=== PATIENT | female | born 1990 | race Caucasian/White ===

== ENCOUNTER → 2017-03-11 | Outpatient (CLI) | payer OTHER ==
[~2017-03-11] MED LIST: PRENTAB55 PO
== END ==
LOC: M SMT 10:43
PROVIDERS: ATTEND Advanced Practice Midwife
DX: O20.0 Threatened abortion (principal); Z3A.00 Weeks of gestation of pregnancy not specified

== ENCOUNTER → 2017-03-13 | Outpatient (CLI) | payer OTHER | LOC: M SMT 10:36 | PROVIDERS: ATTEND Advanced Practice Midwife | DX: O20.0 Threatened abortion (principal); Z3A.00 Weeks of gestation of pregnancy not specified ==

== ENCOUNTER → 2017-03-16 | Outpatient (CLI) | payer OTHER ==
[2017-03-16 20:12] LABS: BASO % 0.3 % (0.0-1.0); EOS # 0.1 K/mm3 (0.0-0.50); EOS % 1.1 % (0.0-3.0); LARGE UNSTAINED CELL # 0.1 K/mm3 (0.0-0.4); LARGE UNSTAINED CELL % 1.2 % (0.0-4.0); LYMPH # 1.7 K/mm3 (1.5-6.5); MEAN CORPUSCULAR HEMOGLOBIN 33.2 pg (27.0-33.0); MEAN CORPUSCULAR VOLUME 97.6 fl (80.0-96.0); MONO # 0.4 K/mm3 (0.0-0.8); MONO % 4.7 % (0.0-5.0); NEUTROPHILS # 5.9 K/mm3 (1.8-7.7); NEUTROPHILS % 72.7 % (36.0-66.0); PLATELET COUNT, AUTOMATED 225 k/mm3 (150-450); RED CELL DISTRIBUTION WIDTH 11.6 % (11.5-14.5); WHITE BLOOD COUNT 8.1 K/mm3 (4.0-10.0)
[2017-03-18 11:31] LABS: HBsAg Prenatal NEGATIVE (NEGATIVE)
== END ==
LOC: M SMT 14:14
PROVIDERS: ATTEND Obstetrics & Gynecology
DX: Z34.81 Encounter for supervision of other normal pregnancy, first trimester (principal)

== ENCOUNTER → 2017-05-22 | Outpatient (CLI) | payer MEDICAID, OTHER | LOC: M SMT 15:18 | PROVIDERS: ATTEND Obstetrics & Gynecology | DX: Z31.438 Encounter for other genetic testing of female for procreative management (principal) ==

== ENCOUNTER → 2017-06-02 | Outpatient (CLI) | payer MEDICAID, OTHER ==
--- NOTE | 2017-06-03 06:28 | REP ---
Clinical: Anatomical evaluation. Comparison: None . Findings: Examination demonstrates a single live intrauterine in breech presentation. motion is identified by technologist. Placenta is noted posteriorly and grade zero with evidence for complete previa. Amniotic fluid volume is normal. Cervix measures 3.5 cm in length and appears closed. No evidence for nuchal cord. Gestational age by LMP 18 weeks 5 days with MT 10/29/2017 . Gestational age by current measurements 18 weeks 1 day with MT 11/02/2017 . FHR equals 153 beats per minute. BPD 4.0 cm 18 weeks 0 days HC 15.0 cm 18 weeks 0 days AC 12.6 cm 18 weeks 1 day FL 2.7 cm 18 weeks 3 days HL 2.6 cm 18 weeks 1 day HC/AC ratio 1.19 Estimated weight 230 grams ( 30th percentile). Anatomical assessment demonstrates normal structures including cranium, choroid plexus, cavum, cerebellum/posterior fossa, facial features, lungs, four-chamber heart/ventricular outflow tracts, diaphragm, stomach, cord insertion/three-vessel cord, kidneys/bladder, spine, and extremities. Impression: 1. Single live intrauterine in breech presentation demonstrating appropriate interval growth. 2. Posterior placenta with complete previa. 3. Anatomical assessment is complete and normal. Signed by Dino Beatty MD 06/03/2017 06:19 A
== END ==
LOC: M SMT 14:47
PROVIDERS: ATTEND Obstetrics & Gynecology
DX: Z34.82 Encounter for supervision of other normal pregnancy, second trimester (principal)

== ENCOUNTER 2017-06-24 11:17 | Outpatient (CLI) | payer OTHER ==
[~2017-06-24] VITALS: Ht 160 cm; Wt 57.0 kg
[2017-06-24] MEDS ORDERED: PRENTAB55 PO (11:41)
== END 2017-06-24 12:05 | disposition home or self-care (01) ==
LOC: M LDO 11:17
PROVIDERS: ATTEND Specialist
DX: O26.892 Other specified pregnancy related conditions, second trimester (principal); Z3A.21 21 weeks gestation of pregnancy

== ENCOUNTER → 2017-07-16 | Outpatient (CLI) | payer OTHER ==
--- NOTE | 2017-07-16 16:49 | REP ---
Obstetric sonography: History: Supervision of for anatomy. Complete previa. Follow-up. Findings: Scanning through the gravid uterus demonstrates a viable single intrauterine gestation in a breech lie. motion is observed and heart rate is recorded at 144 beats per minute. A low-lying posterior placenta is seen without evidence of previa or abruption grade zero. Closed cervical length is 3.9 cm visualized transabdominally as well as transvaginally. No extrauterine abnormalities observed. There has been appropriate interval growth. The inferior tip of the placenta is 0.4 cm from the closed internal cervical os. No anomalies seen. Following anatomic structures are identified and felt to be sonographically unremarkable: cranium, choroid plexus, cavum, cerebellum posterior fossa, face and profile, lungs, four-chamber heart with left and right ventricular outflow tract views, diaphragm, left-sided stomach, abdominal wall cord insertion, three-vessel umbilical cord, kidneys and bladder, spine, upper and lower extremities. Biometry chart: BPD 6.0 cm = 24 weeks 2 days Head circumference 22.4 cm = 24 weeks 3 days Abdominal circumference 19.4 cm = 24 weeks 1 day Femur length 4.3 cm = 23 weeks 6 days Humeral length 3.9 cm = 24 weeks 0 days Cerebellar diameter 2.8 cm = 24 weeks 5 days HC/AC ratio normal 1.15, cephalic index normal 0.73, estimated weight 659 grams 1 pound 7 ounces 20th percentile for 25 weeks 0 days. AMARIS normal 9.6 cm. SD ratio in the umbilical cord artery by Doppler normal 3.69. Impression: Viable single intrauterine gestation at 23 weeks 6 days by today's composite criteria. Expected gestational age estimate based on prior sonography is 25 weeks 0 days. MT by prior sonography October 29, 2017. Very low-lying posterior placenta is seen, 0.4 cm from the internal cervical os. This is essentially a marginal posterior placenta. Signed by Hiram Myers MD 07/16/2017 05:29 P
== END ==
LOC: M SMT 12:59
PROVIDERS: ATTEND Advanced Practice Midwife
DX: O44.02 Complete placenta previa NOS or without hemorrhage, second trimester (principal); Z3A.23 23 weeks gestation of pregnancy

== ENCOUNTER → 2017-08-07 | Outpatient (CLI) | payer OTHER ==
[2017-08-07 14:11] LABS: BASO % 0.3 % (0.0-1.0); EOS % 0.3 % (0.0-3.0); IMMATURE GRANULOCYTE % 0.7 % (0-0); LYMPH # 1.6 10^3/uL (1.5-6.5); MEAN CORPUSCULAR HEMOGLOBIN 33.4 pg (27.0-33.0); MEAN CORPUSCULAR HGB CONC 34.4 g/dl (32.0-36.5); MEAN CORPUSCULAR VOLUME 97.1 fl (80.0-96.0); MONO # 0.7 10^3/uL (0.0-0.8); MONO % 5.6 % (0.0-5.0); NEUTROPHILS # 9.5 10^3/uL (1.8-7.7); NEUTROPHILS % 80.1 % (36.0-66.0); PLATELET COUNT, AUTOMATED 238 10^3/uL (150-450); RED CELL DISTRIBUTION WIDTH 12.2 % (11.5-14.5); WHITE BLOOD COUNT 11.9 10^3/uL (4.0-10.0)
== END ==
LOC: M SMT 09:18
PROVIDERS: ATTEND Advanced Practice Midwife
DX: Z34.83 Encounter for supervision of other normal pregnancy, third trimester (principal)

== ENCOUNTER → 2017-09-09 | Outpatient (CLI) | payer OTHER | LOC: M SMT 14:00 | DX: O44.43 Low lying placenta NOS or without hemorrhage, third trimester (principal); Z3A.33 33 weeks gestation of pregnancy | CPT/HCPCS: 76816 ==

== ENCOUNTER 2017-09-25 14:40 | Outpatient (CLI) | payer OTHER | END 2017-09-25 16:48 | disposition home or self-care (01) | LOC: M LDO 14:40 | DX: O26.893 Other specified pregnancy related conditions, third trimester (principal); Z3A.35 35 weeks gestation of pregnancy; O99.333 Smoking (tobacco) complicating pregnancy, third trimester; R10.9 Unspecified abdominal pain; M54.5 Low back pain; F17.210 Nicotine dependence, cigarettes, uncomplicated ==

== ENCOUNTER → 2017-09-29 | Outpatient (REF) | payer OTHER | LOC: M LAB REF 10:12 | DX: Z34.83 Encounter for supervision of other normal pregnancy, third trimester (principal) ==

== ENCOUNTER → 2017-10-01 | Outpatient (CLI) | payer OTHER | LOC: M SMT 08:41 | DX: O44.43 Low lying placenta NOS or without hemorrhage, third trimester (principal); Z3A.00 Weeks of gestation of pregnancy not specified | CPT/HCPCS: 76817 ==

== ENCOUNTER 2017-10-02 20:25 | Outpatient (CLI) | payer OTHER | END 2017-10-02 22:25 | disposition home or self-care (01) | LOC: M LDO 20:25 | DX: O26.853 Spotting complicating pregnancy, third trimester (principal); O47.03 False labor before 37 completed weeks of gestation, third trimester; Z3A.36 36 weeks gestation of pregnancy ==

== ENCOUNTER 2017-10-05 15:55 | Inpatient (IN) | payer OTHER ==
[2017-10-05] MEDS: ePHEDrine INJ 50 MG/ML VIAL IV (05:41)
[2017-10-05 16:56] LABS: HEMATOCRIT 32.1 % (36.0-47.0); HEMOGLOBIN 11.3 g/dl (12.0-16.0); MEAN CORPUSCULAR HEMOGLOBIN 32.8 pg (27.0-33.0); MEAN CORPUSCULAR HGB CONC 35.2 g/dl (32.0-36.5); PLATELET COUNT, AUTOMATED 236 10^3/uL (150-450); RED BLOOD COUNT 3.45 10^6/uL (4.00-5.40); RED CELL DISTRIBUTION WIDTH 11.8 % (11.5-14.5); WHITE BLOOD COUNT 16.3 10^3/uL (4.0-10.0)
[2017-10-05] MEDS: BETAMETHASONE SOLUSPAN 6MG/ML INJ 5ML (J0702) IM (16:58)
[2017-10-05] MEDS: miSOPROStol 50 MCG 1/2 TAB (S0191) PO ×2 (16:58→21:36)
[2017-10-05 17:28] LABS: AMPHETAMINES URINE REFLEX NEGATIVE (NEGATIVE); BARBITURATES URINE REFLEX NEGATIVE (NEGATIVE); BENZODIAZEPINES URINE REFLEX NEGATIVE (NEGATIVE); CANNABINOIDS URINE REFLEX NEGATIVE (NEGATIVE); COCAINE METABOLITE URINE REFLE NEGATIVE (NEGATIVE); METHADONE URINE REFLEX NEGATIVE (NEGATIVE); OPIATES URINE REFLEX NEGATIVE (NEGATIVE); PHENCYCLIDINE URINE REFLEX NEGATIVE (NEGATIVE)
[2017-10-05] MEDS ORDERED: OXYTOCIN DRIP 30 UNITS in APPROPRIATE DILUENT 1 EA IV (22:00)
[2017-10-06] MEDS ORDERED: FENTANYL 2MCG/ML ROPIVACAINE 0.2% IN 0.9% NACL 200ML IVBAG As Ordered (02:15)
[2017-10-06] MEDS ORDERED: diphenhydrAMINE INJ 50MG/ML VIAL (J1200) IV (04:15)
[2017-10-06] MEDS ORDERED: REFRIGERATOR IV KEYS XX (04:15)
[2017-10-06] MEDS ORDERED: LACTATED RINGER'S 1000 ML IV (04:15)
[2017-10-06] MEDS ORDERED: NALOXONE INJ 0.4 MG/1 ML VIAL (J2310) IV (04:15)
[2017-10-06] MEDS ORDERED: EPIDURAL/PCA KEYS XX (04:15)
[2017-10-06] MEDS ORDERED: FENTANYL/ROPIVACAINE/NACL BAG 200 ML EPIDURAL (04:15)
[2017-10-06] MEDS ORDERED: EPIDURAL COMMENT XX (04:15)
[2017-10-06] MEDS ORDERED: ONDANSETRON 4MG/2ML VIAL (J2405) IV (04:15)
[2017-10-06] MEDS: BETAMETHASONE SOLUSPAN 6MG/ML INJ 5ML (J0702) IM (05:14)
[2017-10-06] MEDS: ePHEDrine INJ 50 MG/ML VIAL IV ×2 (05:35→07:33)
[2017-10-06] MEDS: LR 1,000 ML IV (07:55)
[2017-10-06] MEDS: OXYTOCIN DRIP 30 UNITS in APPROPRIATE DILUENT 1 EA IV (14:18)
[2017-10-06] MEDS ORDERED: MEASLES,MUMPS,RUBELLA VACCINE INJ (MMR-II) (90707) SC (14:30)
[2017-10-06] MEDS ORDERED: DOCUSATE SODIUM 100 MG CAP PO (14:30)
[2017-10-06] MEDS ORDERED: SLF 3 ML SYR IV (14:30)
[2017-10-06] MEDS ORDERED: ACETAMINOPHEN 500 MG TAB PO (14:30)
[2017-10-06] MEDS ORDERED: METHYLERGONOVINE MALEATE 0.2 MG TAB PO (14:30)
[2017-10-06] MEDS ORDERED: DIBUCAINE 1% OINTMENT 30GM TOP (14:30)
[2017-10-06] MEDS ORDERED: RHOGAM 300 MCG (1500 IU) INJ (J2790) IM (14:30)
[2017-10-06] MEDS: IBUPROFEN 800 MG TAB PO (19:47)
[2017-10-06] MEDS: SLF 3 ML SYR IV (22:00)
[2017-10-07] MEDS: SLF 3 ML SYR IV (06:00)
[2017-10-07] MEDS: PRENATAL VITAMINS CHEWABLE TABLET PO (07:54)
== END 2017-10-07 11:50 | disposition home or self-care (01) | DRG 560 ==
LOC: M LDI 15:55 → M OBS 10-06 14:43
PROVIDERS: Advanced Practice Midwife
PROC: 10E0XZZ Delivery of Products of Conception, External Approach (ICD-10-PCS; principal; 2017-10-06)
PROC: 0HQ9XZZ Repair Perineum Skin, External Approach (ICD-10-PCS; 2017-10-06)
DX: O60.14X0 Preterm labor third trimester with preterm delivery third trimester, not applicable or unspecified (principal); O42.013 Preterm premature rupture of membranes, onset of labor within 24 hours of rupture, third trimester; Z37.0 Single live birth; Z3A.36 36 weeks gestation of pregnancy; O70.0 First degree perineal laceration during delivery

== ENCOUNTER → 2020-08-22 | Outpatient (CLI) | payer OTHER ==
[~2020-08-22] MED LIST changes: +FLUO20CA22; +IBUP-1114 PO; +MAPA500T2 PO; +OMEP-218; +PRENTAB9 PO
== END ==
LOC: M LABSMTC 10:05
PROVIDERS: ATTEND Anesthesiology
DX: Z01.818 Encounter for other preprocedural examination (principal); Z20.828 Contact with and (suspected) exposure to other viral communicable diseases

== ENCOUNTER 2020-08-27 11:19 | Day surgery (SDC) | payer BC ==
[~2020-08-27] VITALS: Ht 160 cm; Wt 51.6 kg
[~2020-08-27 11:19] MED LIST changes: +NS 1,000 ML IV ONE
[2020-08-27] MEDS ORDERED: fentaNYL 100 MCG/2 ML INJECTION (J3010) As Ordered ONE (13:24)
[2020-08-27] MEDS ORDERED: propofoL 500 MG/50 ML VIAL As Ordered ONE (13:24)
[2020-08-27] MEDS ORDERED: LIDOCAINE 2% 100MG/5ML SDV (FOR ANES.) As Ordered ONE (13:24)
--- NOTE | 2020-08-27 13:28 | ROOR ---
Patient Name: Melba Franz Procedure Date: 08/27/2020 12:55 PM Date of : 1990 Age: 30 Room: [facility] Gender: Female Note Status: Finalized Procedure: Upper GI endoscopy Indications: Dysphagia Providers: Mike Gonsales MD Referring MD: Vickie BARRIENTOS MD Requesting Provider: Medicines: Monitored Anesthesia Care Complications: No immediate complications. Procedure: Pre-Anesthesia Assessment: - Prior to the procedure, a History and Physical was performed, and patient medications and allergies were reviewed. The patient is competent. The risks and benefits of the procedure and the sedation options and risks were discussed with the patient. All questions were answered and informed consent was obtained. Patient identification and proposed procedure were verified by the physician, the nurse and the anesthesiologist in the procedure room. Mental Status Examination: alert and oriented. Airway Examination: normal oropharyngeal airway and neck mobility. Respiratory Examination: clear to auscultation. CV Examination: normal. Prophylactic Antibiotics: The patient does not require prophylactic antibiotics. Prior Anticoagulants: The patient has taken no previous anticoagulant or antiplatelet agents. ASA Grade Assessment: I - A normal, healthy patient. After reviewing the risks and benefits, the patient was deemed in satisfactory condition to undergo the procedure. The anesthesia plan was to use monitored anesthesia care (MAC). Immediately prior to administration of medications, the patient was re-assessed for adequacy to receive sedatives. The heart rate, respiratory rate, oxygen saturations, blood pressure, adequacy of pulmonary ventilation, and response to care were monitored throughout the procedure. The physical status of the patient was re-assessed after the procedure. The Endoscope was introduced through the mouth, and advanced to the second part of duodenum. The upper GI endoscopy was accomplished without difficulty. The patient tolerated the procedure well. Findings: Mucosal changes including longitudinal furrows and white plaques were found in the middle third of the esophagus and in the lower third of the esophagus. Biopsies were obtained from the proximal and distal esophagus with cold forceps for histology of suspected eosinophilic esophagitis. Verification of patient identification for the specimen was done by the physician and nurse using the patient's name, date and medical record number. Estimated blood loss was minimal. The Z-line was regular and was found 39 cm from the incisors. Scattered mild inflammation characterized by erythema and granularity was found in the gastric antrum. Biopsies were taken with a cold forceps for Helicobacter pylori testing. The duodenal bulb and second portion of the duodenum were normal. Impression: - Esophageal mucosal changes suspicious for eosinophilic esophagitis. Biopsied. - Z-line regular, 39 cm from the incisors. - Gastritis. Biopsied. - Normal duodenal bulb and second portion of the duodenum. Recommendation: - Patient has a contact number available for emergencies. The signs and symptoms of potential delayed complications were discussed with the patient. Return to normal activities tomorrow. Written discharge instructions were provided to the patient. - High fiber diet. - Continue present medications. - Await pathology results. - Repeat upper endoscopy in 1 year for surveillance based on pathology results. - Avoid the food allergens. Follow Six Food Elimination Diet ( Avoid -- milk, soy, eggs, wheat, peanuts/tree nuts, and seafood), until allergy testing is done. - Telephone GI clinic for pathology results in 2 weeks. - Return to primary care physician. Procedure Code(s): --- Professional --- 53726, Esophagogastroduodenoscopy, flexible, transoral; with biopsy, single or multiple Diagnosis Code(s): --- Professional --- K22.8, Other specified diseases of esophagus K29.70, Gastritis, unspecified, without bleeding R13.10, Dysphagia, unspecified CPT copyright 2019 [employer]. All rights reserved. The codes documented in this report are preliminary and upon section crews activities clerk review may be revised to meet current compliance requirements. Mike Gonsales MD Mike Gonsales MD 08/27/2020 1:27:32 PM Electronically signed by Mike Gonsales MD Number of Addenda: 0 Note Initiated On: 08/27/2020 12:55 PM Estimated Blood Loss: Estimated blood loss was minimal.
[2020-08-27 13:52] VITALS: BP 117/59
== END 2020-08-27 13:55 | disposition home or self-care (01) ==
LOC: M OPP 11:19
PROVIDERS: ATTEND Internal Medicine Gastroenterology
DX: K22.8 Other specified diseases of esophagus (principal); K29.70 Gastritis, unspecified, without bleeding; R13.10 Dysphagia, unspecified; K21.9 Gastro-esophageal reflux disease without esophagitis; R44.8 Other symptoms and signs involving general sensations and perceptions; Z79.899 Other long term (current) drug therapy; F17.210 Nicotine dependence, cigarettes, uncomplicated
CPT/HCPCS: 43239; 88305; J3010

== ENCOUNTER → 2020-12-25 | Outpatient (CLI) | payer BC ==
[~2020-12-25] MED LIST changes: +ISOVUE-370 76% 100ML VIAL As Ordered ONE; +LIDOCAINE 2% 100MG/5ML SDV (FOR ANES.) As Ordered ONE; -NS 1,000 ML IV ONE; +propofoL 200 MG/20 ML VIAL As Ordered ONE
--- NOTE | 2020-12-26 08:41 | REP ---
INDICATION: Posterior WALL @ LEVEL NASOPHARYNX MASS. COMPARISON: None. TECHNIQUE: Axial CT images with multiplanar reformations. FINDINGS: Oropharynx, nasopharynx, hypopharynx and larynx appear grossly unremarkable. On the axial images, there is a soft tissue fullness seen centrally and right paracentral within the posterior nasopharynx, (image 18 series 201). This soft tissue fullness does not display discrete margins. The appearance is suggestive of adenoidal hypertrophy. Scattered cervical chain lymph nodes are seen bilaterally, predominantly in the posterior triangles, the largest measuring up to 1 cm in short axis is seen on the right. Common and internal carotid arteries widely patent. Vertebral arteries present throughout their cervical course. Thyroid glands appear unremarkable lung apices are clear. Paranasal sinuses and mastoid air cells are clear. There minimal cervical degenerative disease disc disease. IMPRESSION: 1. Soft tissue fullness seen centrally and right paracentral within the posterior nasopharynx, (image 18 series 201). This soft tissue fullness does not display discrete margins. The appearance is suggestive of adenoidal hypertrophy although neoplasm not excluded. 2. The tonsils appear prominent for age. 3. Scattered cervical chain lymph nodes are within normal limits in size. <Electronically signed by Diogenes Humphreys > 12/26/20 [id number]
== END ==
LOC: M RAD 16:33
PROVIDERS: ATTEND Otolaryngology
DX: R22.1 Localized swelling, mass and lump, neck (principal)
CPT/HCPCS: 70491; Q9967

== ENCOUNTER → 2021-02-11 | Outpatient (CLI) | payer BC ==
[~2021-02-11] MED LIST changes: +ACET-907 PO; -ISOVUE-370 76% 100ML VIAL As Ordered ONE; -LIDOCAINE 2% 100MG/5ML SDV (FOR ANES.) As Ordered ONE; +VITMTA PO; -propofoL 200 MG/20 ML VIAL As Ordered ONE
== END ==
LOC: M LABSMTC 12:32
PROVIDERS: ATTEND Anesthesiology
DX: Z01.812 Encounter for preprocedural laboratory examination (principal); Z20.828 Contact with and (suspected) exposure to other viral communicable diseases

== ENCOUNTER 2021-02-14 07:43 | Day surgery (SDC) | payer BC ==
[~2021-02-14] VITALS: Ht 160 cm; Wt 51.2 kg
[~2021-02-14 07:43] MED LIST changes: -ACET-907 PO; +LR 1,000 ML IV ONE; +dexameTHASONE 4 MG/ML 1ML VIAL (J1100 PER 1MG) IV ONE
[2021-02-14] MEDS ORDERED: ACET-907 PO (08:04)
[2021-02-14] MEDS ORDERED: fentaNYL 250 MCG/5 ML INJECTION (J3010) As Ordered ONE (09:26)
[2021-02-14] MEDS ORDERED: ONDANSETRON 4MG/2ML VIAL As Ordered ONE (09:27)
[2021-02-14] MEDS ORDERED: LIDOCAINE 2% 100MG/5ML SDV (FOR ANES.) As Ordered ONE (09:27)
[2021-02-14] MEDS ORDERED: dexameTHASONE 4 MG/ML 1ML VIAL (J1100 PER 1MG) As Ordered ONE (09:27)
[2021-02-14] MEDS ORDERED: propofoL 200 MG/20 ML VIAL As Ordered ONE (09:27)
[2021-02-14] MEDS ORDERED: MIDAZOLAM INJ 2MG/2ML VIAL (J2250 PER 1MG) As Ordered ONE (09:27)
[2021-02-14] MEDS ORDERED: ROCURONIUM BROMIDE 50 MG/5 ML VIAL As Ordered ONE (09:27)
[2021-02-14] MEDS ORDERED: OXYMETAZOLINE 0.05% NASAL SPRAY (AFRIN) As Ordered ONE (09:40)
[2021-02-14] MEDS ORDERED: SUGAMMADEX SODIUM 500 MG/5 ML VIAL (BRIDION) As Ordered ONE (11:05)
[2021-02-14] MEDS ORDERED: PERCOCET 5MG/325MG TAB PO PRN (12:05)
[2021-02-14] MEDS ORDERED: ONDANSETRON 4MG/2ML VIAL IV PRN (12:05)
[2021-02-14] MEDS ORDERED: fentaNYL 100 MCG/2 ML INJECTION (J3010) IV PRN (12:05)
[2021-02-14] MEDS ORDERED: METOCLOPRAMIDE INJ 10MG/2ML VIAL (J2765 PER 1) IV PRN (12:05)
[2021-02-14] MEDS ORDERED: LR 1,000 ML IV SCH ×2 (12:05)
[2021-02-14 12:49] VITALS: BP 119/77
== END 2021-02-14 13:45 | disposition home or self-care (01) ==
LOC: M SDC 07:43
PROVIDERS: ATTEND Otolaryngology
DX: J35.3 Hypertrophy of tonsils with hypertrophy of adenoids (principal); K21.9 Gastro-esophageal reflux disease without esophagitis; F17.218 Nicotine dependence, cigarettes, with other nicotine-induced disorders; F41.9 Anxiety disorder, unspecified; F32.9 Major depressive disorder, single episode, unspecified; Z79.899 Other long term (current) drug therapy
CPT/HCPCS: 42821; 88302; J1100; J2250; J2405; J3010